=== PATIENT | male | born 1965 | race Native Hawaiian/Other Pacific Islander ===

== ENCOUNTER 2017-06-16 20:11 | Emergency (ER) | payer OTHER ==
[~2017-06-16] VITALS: Ht 177.8 cm; Wt 88.9 kg
[2017-06-16 20:57] LABS: PLATELET COUNT 317 K/uL (142-355)
== END 2017-06-16 22:07 | disposition home or self-care (01) ==
LOC: ED 20:11
DX: M25.562 Pain in left knee (principal); S80.812A Abrasion, left lower leg, initial encounter; W19.XXXA Unspecified fall, initial encounter; Y92.098 Other place in other non-institutional residence as the place of occurrence of the external cause
CPT/HCPCS: 36415; 85027; 99283

== ENCOUNTER 2017-07-05 13:13 | Emergency (ER) | payer OTHER ==
[~2017-07-05] VITALS: Ht 180.3 cm; Wt 88.5 kg
== END 2017-07-05 15:23 | disposition home or self-care (01) ==
LOC: ED 13:13
DX: M27.3 Alveolitis of jaws (principal); Z98.890 Other specified postprocedural states
CPT/HCPCS: 99282

== ENCOUNTER 2017-07-18 01:55 | Emergency (ER) | payer OTHER ==
[~2017-07-18] VITALS: Ht 177.8 cm; Wt 88.9 kg
== END 2017-07-18 03:08 | disposition home or self-care (01) ==
LOC: ED 01:55
DX: M25.562 Pain in left knee (principal)
CPT/HCPCS: 99281